=== PATIENT | female | born 1970 | race Caucasian/White ===

== ENCOUNTER 2017-04-16 19:51 | Emergency (ER) ==
[2017-04-16 20:00] VITALS: BP 123/86; TEMP 97.6; BMI 46.3
--- NOTE | 2017-04-16 20:02 | ED.PDOC ---
General ED Provider: Dr. JOSIAH PFEIFFER-ER Chief Complaint: Respiratory Complaint Stated Complaint: shes had a runny nose with nasal congestion and cough Time Seen by Physician: 20:00 Mode of Arrival: Walk-In Information Source: Patient Exam Limitations: No limitations Nursing and Triage Documentation Reviewed and Agree: Yes Respiratory Complaint Exam - Respiratory Complaint/Exam Onset/Duration: 3 days Symptoms Are: Still present Timing: Intermittent Initial Severity: Mild Current Severity: Mild Location: Nose, Chest Character: Reports: Productive cough Aggravating: Reports: URI Alleviating: Reports: None Associated Signs and Symptoms: Reports: Fever, URI, Nasal congestion, Sinus discomfort, Sore throat. Denies: Rapid breathing, Dyspnea, Chills, Chest pain, Pleuritic chest pain, Wheezing, Hemoptysis, Dizziness, Calf pain, Calf swelling , Edema, Hoarseness, Vomiting, Weight loss, Decreased oral intake, Increased thirst, Increased appetite, Increased urination History of Healthcare-Acquired Pneumonia: No Recent Stress Test: No Recent Echo/LV Function: No Current Antibiotic Use: No Current Asthma Medication Use: No Respiratory Distress: None Inadequate Respiratory Effort: No Dysphagia Present: No Stridor Present: No JVD Present: No Accessory Muscle Use: No Retractions: Not Present Diminished Breath Sounds: No Sinus Tenderness: None Grunting Respirations: No Kussmaul Respirations: No Differential Diagnoses: Bronchitis, Sinusitis, URI Review of Systems - Review Of Systems Constitutional: Reports: No symptoms Eyes: Reports: No symptoms Ears, Nose, Mouth, Throat: Reports: Nose discharge Respiratory: Reports: Cough Cardiac: Reports: No symptoms GI: Reports: No symptoms : Reports: No symptoms Musculoskeletal: Reports: No symptoms Skin: Reports: No symptoms Neurological: Reports: No symptoms Endocrine: Reports: No symptoms Hematologic/Lymphatic: Reports: No symptoms All Other Systems: Reviewed and Negative Past Medical History - Past Medical History Previously Healthy: Yes Endocrine: Reports: Unknown Cardiovascular: Reports: Unknown Respiratory: Reports: Unknown Hematological: Reports: Unknown Gastrointestinal: Reports: Unknown Genitourinary: Reports: Unknown Neuro/Psych: Reports: Unknown Musculoskeletal: Reports: Unknown Cancer: Reports: Unknown Last Menstrual Period: N/A - Surgical History General Surgical History: Reports: Unknown - Family History Family History: Reports: Unknown - Social History Smoking Status: Never smoker Hx Substance Use: No Alcohol Screening: None Lives: In Assisted Living - Immunizations Tetanus Shot up to Date: Yes Physical Exam - Physical Exam Appearance: Well-appearing, No pain distress, Well-nourished Eyes: RADHA, EOMI, Conjunctiva clear ENT: Rhinorrhea Neck: Supple Respiratory: Rhonchi Cardiovascular: RRR GI/: Soft, Nontender, No masses, Bowel sounds normal, No Organomegaly, Hepatomegaly Musculoskeletal: Normal strength, ROM intact, No edema, No calf tenderness Skin: Warm, Dry, Normal color Neurological: Sensation intact, Motor intact, Reflexes intact, Cranial nerves intact, Alert, Oriented Psychiatric: Affect appropriate, Mood appropriate Critical Care Note - Critical Care Note Total Time (mins): 0 Course - Course Vital Signs: Temp Pulse Resp BP Pulse Ox 04/16/17 19:53 97.6 F 90 18 123/86 94 L Departure - Departure Time of Disposition: 20:02 Disposition: HOME SELF-CARE Discharge Problem: Bronchitis Sinusitis Qualifiers: Sinusitis location: unspecified location Chronicity: acute Recurrence: non- recurrent Qualified Code(s): J01.90 - Acute sinusitis, unspecified Instructions: Sinusitis (ED) Condition: Good Pt referred to PMD for follow-up: No Additional Instructions: zpack, medrol dose pack, tessalon perles 200mg tid prn cough 30.. Allergies/Adverse Reactions: Allergies Penicillins Adverse Reaction (Verified 04/16/17 19:53) Disposition Discussed With: Patient, Other
== END 2017-04-16 20:28 | disposition home or self-care (01) ==
LOC: ED 19:51
DX: J40 Bronchitis, not specified as acute or chronic (principal); J01.90 Acute sinusitis, unspecified
CPT/HCPCS: 99283

== ENCOUNTER 2017-04-21 20:12 | Emergency (ER) ==
[2017-04-21 20:21] VITALS: BP 145/87; TEMP 97; BMI 47.9
[2017-04-21] MEDS ORDERED: TORADOL IM STA (21:20)
[2017-04-21] MEDS ORDERED: NORFLEX IM STA (21:20)
[2017-04-21] MEDS ORDERED: NORCO 5-325 PO STA (21:20)
--- NOTE | 2017-04-21 21:22 | ED.PDOC ---
General ED Provider: Dr. ALLEN MOURA Chief Complaint: Back Pain Stated Complaint: severe back pain on the right with radiation to the right leg. Denies any Trauma. Tylenol at home has not helped. Time Seen by Physician: 21:21 Mode of Arrival: Walk-In Information Source: Patient Nursing and Triage Documentation Reviewed and Agree: Yes Musculoskeletal Complaint Exam - Back Pain Complaint/Exam Mechanism of Injury: Reports: No known trauma Onset/Duration: 1 days Symptoms Are: Still present Timing: Constant Initial Severity: Moderate Current Severity: Severe Location: Reports: Discrete (right lower back radiating to the right leg ) Character: Reports: Aching, Throbbing, Spasmodic Aggravating: Reports: Movements, Bending, Walking Alleviating: Reports: Rest Associated Signs and Symptoms: Denies: Swelling, Redness, Bruising, Fever, Weakness, Numbness, Tingling, Abdominal pain, Flank pain, Bladder incontinence, Bowel incontinence, Weight loss, Pain with weight bearing Related History: Reports: Similar episode (off and on at times ) TAD Risk Factors: Reports: None AAA Risk Factors: Reports: None Cauda Equina Risk Factors: Reports: None Epidural Abcess Risk Factors: Reports: None Related Surgical History: Reports: None Focal Tenderness: Yes Paraspinal Muscle Tenderness: Yes Paraspinal Muscle Spasm: Yes Scoliosis: No Lordosis: No Kyphosis: No SLR Test: Right Positive, Left Negative Hip Motion Testing Pain: Right Negative, Left Negative Focal Weakness: Present: None Focal Sensory Loss: Present: None Gait: Present: Normal Back Picture: 1 - pain and tenderness 2 - radiation Differential Diagnoses: Strain, Sprain Review of Systems - Review Of Systems Constitutional: Reports: No symptoms Eyes: Reports: No symptoms Ears, Nose, Mouth, Throat: Reports: No symptoms Respiratory: Reports: No symptoms Cardiac: Reports: No symptoms GI: Reports: No symptoms : Reports: No symptoms Musculoskeletal: Reports: Back pain Skin: Reports: No symptoms Neurological: Reports: No symptoms Endocrine: Reports: No symptoms Hematologic/Lymphatic: Reports: No symptoms All Other Systems: Reviewed and Negative Past Medical History - Past Medical History Previously Healthy: Yes Endocrine: Reports: Unknown Cardiovascular: Reports: Unknown Respiratory: Reports: Unknown Hematological: Reports: Unknown Gastrointestinal: Reports: Unknown Genitourinary: Reports: Unknown Neuro/Psych: Reports: Unknown Musculoskeletal: Reports: Unknown Cancer: Reports: Unknown Last Menstrual Period: none - Surgical History General Surgical History: Reports: Unknown - Family History Family History: Reports: Unknown - Social History Smoking Status: Never smoker Hx Substance Use: No Alcohol Screening: None Physical Exam - Physical Exam Appearance: Ill-appearing Ill-appearing: Moderate Pain Distress: Moderate Eyes: RADHA, EOMI, Conjunctiva clear ENT: Ears normal, Nose normal, Oropharynx normal Respiratory: Airway patent, Breath sounds clear, Breath sounds equal, Respirations nonlabored Cardiovascular: RRR, Pulses normal, No rub, No murmur GI/: Soft, Nontender, No masses, Bowel sounds normal, No Organomegaly Musculoskeletal: Normal strength, ROM intact, No edema, No calf tenderness Skin: Warm, Dry, Normal color Neurological: Sensation intact, Motor intact, Reflexes intact, Cranial nerves intact, Alert, Oriented Psychiatric: Affect appropriate, Mood appropriate Re-Evaluation - Re-Evaluation Time of Re-Evaluation: 22:01 Status: Improved Pain Level: almost gone Critical Care Note - Critical Care Note Total Time (mins): 0 Course - Course Orders, Labs, Meds: Orders Category Date Time Status Hydrocodone Bit/Acetaminophen [[place]aves 5-325] MEDS 04/21/17 21:20 Discontinued 1 tab PO ONCE STA Ketorolac Tromethamine [Toradol] MEDS 04/21/17 21:20 Discontinued 60 mg IM ONCE STA Orphenadrine Citrate [Norflex] MEDS 04/21/17 21:20 Discontinued 60 mg IM ONCE STA Medications Discontinued Medications Generic Name Dose Route Start Last Admin Trade Name Freq PRN Reason Stop Dose Admin Acetaminophen/Hydrocodone Bitart 1 tab 04/21/17 21:20 04/21/17 21:29 W[place] 5-325 PO 04/21/17 21:21 1 tab ONCE STA Administration Ketorolac Tromethamine 60 mg 04/21/17 21:20 04/21/17 21:30 Toradol IM 04/21/17 21:21 60 mg ONCE STA Administration Orphenadrine Citrate 60 mg 04/21/17 21:20 04/21/17 21:29 Norflex IM 04/21/17 21:21 60 mg ONCE STA Administration Vital Signs: Temp Pulse Resp BP Pulse Ox 04/21/17 20:12 97.0 F L 97 H 18 145/87 H 95 Departure - Departure Time of Disposition: 22:01 Disposition: HOME SELF-CARE Discharge Problem: Backache Instructions: Low Back Strain (ED) Condition: Fair Pt referred to PMD for follow-up: Yes Additional Instructions: Take Medications as prescribed Follow up with PCP in 3 days Prescriptions: Hydrocodone/Acetaminophen [Waves 5-325 Tablet] 1 tab PO Q6HR PRN #14 tablet PRN Reason: PAIN Allergies/Adverse Reactions: Allergies Penicillins Adverse Reaction (Verified 04/21/17 20:21) Home Medications: Ambulatory Orders Benztropine Mesylate [Cogentin] 1 mg PO DAILY 04/16/17 Diphenhydramine HCl [Benadryl] 25 mg PO DAILY 04/16/17 Divalproex Sodium [Divalproex Sodium ER] 1,250 mg PO DAILY 04/16/17 [place] Carbonate [[place] Carbonate ER] 450 mg PO BID 04/16/17 Lurasidone HCl [Latuda] 20 mg PO DAILY 04/16/17 Pantoprazole Sodium [Protonix] 40 mg PO DAILY 04/16/17 Primidone [Mysoline] 50 mg PO DAILY 04/16/17 Propranolol HCl [Inderal] 20 mg PO BID 04/16/17 Acetaminophen [Tylenol Arthritis] 650 mg PO Q4H PRN 04/21/17 Azithromycin [Zithromax] 250 mg PO DIRECTED 04/21/17 Benzonatate [Tessalon Perles] 200 mg PO TID PRN 04/21/17 Hydrocodone/Acetaminophen [[place] 5-325 Tablet] 1 tab PO Q6HR PRN #14 tablet 10/01 Methylprednisolone [Medrol Dosepak] 4 mg PO DIRECTED 04/21/17 Disposition Discussed With: Patient
== END 2017-04-21 22:07 | disposition home or self-care (01) ==
LOC: ED 20:12
DX: M54.5 Low back pain (principal)
CPT/HCPCS: 96372; 99282

== ENCOUNTER 2017-05-21 10:33 | Outpatient (CLI) ==
--- NOTE | 2017-05-21 11:13 | DI ---
EXAM: Radiographs, lumbar spine HISTORY: Low back pain. COMPARISON: None available. TECHNIQUE: Five views. FINDINGS: Curvature and alignment are normal. Vertebral body heights are maintained. Disc heights are normal. Mild multilevel endplate osteophyte formation and facet arthropathy noted. No fracture or subluxation identified. Sacral arcuate lines are intact. Atherosclerotic calcifications present. IMPRESSION: Mild multilevel degenerative changes.
--- NOTE | 2017-05-21 11:14 | DI ---
EXAM: Pelvis AP view HISTORY: Pelvic and perineal pain FINDINGS: The visualized body of the sacrum and sacroiliac joints appear normal. The iliac wings a nd pubic bones reveal no deformity. Hip joints are normal. No fracture seen. IMPRESSION: Unremarkable study.
== END 2017-05-21 10:34 | disposition home or self-care (01) ==
LOC: RAD 10:33
PROVIDERS: ATTEND Emergency Medicine
DX: M54.5 Low back pain (principal); G89.29 Other chronic pain; R10.2 Pelvic and perineal pain

== ENCOUNTER 2017-06-15 11:42 | Outpatient (CLI) | END 2017-06-15 11:43 | disposition home or self-care (01) | LOC: CAR 11:42 | PROVIDERS: ATTEND Physician Assistant | DX: Z51.81 Encounter for therapeutic drug level monitoring (principal) | CPT/HCPCS: 93005; 93010 ==

== ENCOUNTER 2017-07-18 23:56 | Emergency (ER) ==
--- NOTE | 2017-07-19 00:19 | ED.PDOC ---
General ED Provider: Dr. ALLEN MOURA Chief Complaint: Chest Pain Stated Complaint: Started having sharp pain to mid chest when went to bed. States that the pain is constant. Time Seen by Physician: 00:17 Mode of Arrival: Walk-In Information Source: Patient Exam Limitations: No limitations Primary Care Provider: ELICEO HENSLEY Nursing and Triage Documentation Reviewed and Agree: Yes Reviewed sepsis parameters & appropriate labs ordered?: No System Inflammatory Response Syndrome: Not Applicable Sepsis Protocol: For patient's 13 years and over: Temp is 96.8 and below OR 101 and greater Pulse >90 BPM Resp >20/minute Acutely Altered Mental Status Are patient's symptoms suggestive of a new infection, such as: -Pneumonia -Skin, Soft Tissue -Endocarditis -UTI -Bone, Joint Infection -Implantable Device -Acute Abdominal Infection -Wound Infection -Meningitis -Blood Stream Catheter Infection -Unknown System Inflammatory Response Syndrome: Not Applicable Review of Systems - Review Of Systems Constitutional: Reports: No symptoms Eyes: Reports: No symptoms Ears, Nose, Mouth, Throat: Reports: No symptoms Respiratory: Reports: No symptoms Cardiac: Reports: Chest pain GI: Reports: No symptoms : Reports: No symptoms Musculoskeletal: Reports: No symptoms Skin: Reports: No symptoms Neurological: Reports: No symptoms Endocrine: Reports: No symptoms Hematologic/Lymphatic: Reports: No symptoms All Other Systems: Reviewed and Negative Past Medical History - Past Medical History Previously Healthy: Yes Endocrine: Reports: Unknown Cardiovascular: Reports: Unknown Respiratory: Reports: Unknown Hematological: Reports: Unknown Gastrointestinal: Reports: GERD Genitourinary: Reports: Unknown Neuro/Psych: Reports: Depression, Bipolar Disorder Musculoskeletal: Reports: Unknown Cancer: Reports: Unknown Last Menstrual Period: 5 days ago - Surgical History General Surgical History: Reports: Other (Cyst removed from right lower back ) - Family History Family History: Reports: Unknown - Social History Smoking Status: Current every day smoker, Heavy tobacco smoker Hx Substance Use: No Alcohol Screening: None - Immunizations Tetanus Shot up to Date: Yes (06/2017) Physical Exam - Physical Exam Appearance: Ill-appearing Pain Distress: Moderate Eyes: RADHA, EOMI, Conjunctiva clear Neck: Supple Respiratory: Airway patent, Breath sounds clear, Breath sounds equal, Respirations nonlabored GI/: Soft, Nontender, No masses, Bowel sounds normal, No Organomegaly Musculoskeletal: Normal strength, ROM intact, No edema, No calf tenderness Neurological: Alert Psychiatric: Anxious Interpretation - Radiology Interpretation Radiology Interpretation By: ED Physician Radiology Results: Negative Exam Interpreted: Portable CXR - EKG Interpretation Time of EKG #1: 00:25 Rate: Normal Rhythm: Sinus Ectopy: None [place]: NL ST Segment: Other Interpretation: non specific T wave Abnormality Critical Care Note - Critical Care Note Total Time (mins): 0 Course - Course Hematology/Chemistry: 07/19/17 00:40 07/19/17 00:40 Orders, Labs, Meds: Lab Review 07/19/17 03 00:40 00:40 WBC 14.00 H RBC 4.00 L Hgb 12.9 Hct 39.7 MCV 99.3 H MCH 32.3 H MCHC 32.5 RDW Coeff of Yehuda 13.9 Plt Count 344 Immature Gran % (Auto) 1.6 Neut % (Auto) 40.4 Lymph % (Auto) 43.6 Pepin % (Auto) 9.0 Eos % (Auto) 4.5 Baso % (Auto) 0.9 Immature Gran # (Auto) 0.2 Neut # (Auto) 5.7 Lymph # (Auto) 6.1 H Pepin # (Auto) 1.3 Eos # (Auto) 0.6 Baso # (Auto) 0.1 Sodium 134 L Potassium 4.5 Chloride 101 Carbon Dioxide 20 L Anion Gap 17.5 BUN 10 Creatinine 0.75 Estimated GFR (MDRD) 83.00 BUN/Creatinine Ratio 13.33 Glucose 94 Calcium 9.3 Total Bilirubin 0.3 AST 16 ALT 13 Alkaline Phosphatase 62 Total Creatine Kinase 116 CK-MB (CK-2) 3.0 CK-MB (CK-2) % 2.38401 Troponin I < 0.0100 Total Protein 7.3 Albumin 3.3 L Globulin 4.0 Albumin/Globulin Ratio 0.83 Orders Category Date Time Status EKG-(ED ONLY) Stat CARDIO 07/19/17 00:15 Completed ED GAME TECHNICIAN APPLIED .ONCE EMERGENCY 07/19/17 00:15 Active CBC W/ AUTO DIFF Stat LAB 07/19/17 00:40 Completed COMPREHENSIVE METABOLIC PANEL Stat LAB 07/19/17 00:40 Completed CREATINE KINASE Stat LAB 07/19/17 00:40 Completed TROPONIN I Stat LAB 07/19/17 00:40 Completed Mag-Al Plus//Lidocaine [Gi Cocktail] MEDS 07/19/17 00:35 Discontinued 30 ml PO ONCE STA CHEST, 1V AP ONLY Stat RADS 07/19/17 00:13 Completed Medications Discontinued Medications Generic Name Dose Route Start Last Admin Trade Name Dashawn PRN Reason Stop Dose Admin Al Hydroxide/Mg Hydroxide 30 ml 07/19/17 00:35 07/19/17 00:41 Gi Cocktail PO 07/19/17 00:36 30 ml ONCE STA Administration Vital Signs: Temp Pulse Resp BP Pulse Ox 07/18/17 23:59 97 F L 77 18 106/76 98 MERLE Risk Score Age >/= 65: No >/= 3 CAD Risk Factors: No Known CAD (Stenosis >/= 50%): No ASA Use in Past 7 Days: No Severe Angina (>/= 2 episodes in 24 hours): No EKG ST Changes >/= 0.5mm: No Postive Cardiac Marker: No MERLE Total Score: 0 MERLE Risk Score: Risk Score Odds of by 30D 0 0.1 (0.1-0.2) 1 0.3 (0.2-0.3) 2 0.4 (0.3-0.5) 3 0.7 (0.6-0.9) 4 1.2 (1.0-1.5) 5 2.2 (1.9-2.6) 6 3.0 (2.5-3.6) 7 4.8 (3.8-6.1) Departure - Departure Time of Disposition: 01:24 Disposition: HOME SELF-CARE Discharge Problem: Chest pain, Non-cardiac chest pain GERD (gastroesophageal reflux disease) Qualifiers: Esophagitis presence: without esophagitis Qualified Code(s): K21.9 - Gastro- esophageal reflux disease without esophagitis Instructions: Gastroesophageal Reflux Disease (ED), Chest Wall Pain (ED) Condition: Stable Pt referred to PMD for follow-up: Yes IPMP verified?: No Additional Instructions: Continue home medications for GERD Follow up with PCP in 3 days Allergies/Adverse Reactions: Allergies Penicillins Adverse Reaction (Verified 04/21/17 20:21) Home Medications: Ambulatory Orders Benztropine Mesylate [Cogentin] 1 mg PO DAILY 04/16/17 Diphenhydramine HCl [Benadryl] 25 mg PO BEDTIME 04/16/17 Divalproex Sodium [Divalproex Sodium ER] 250 mg PO BEDTIME 04/16/17 [place] Carbonate [[place] Carbonate ER] 450 mg PO BID 04/16/17 Pantoprazole Sodium [Protonix] 40 mg PO DAILY 04/16/17 Primidone [Mysoline] 50 mg PO DAILY 04/16/17 Propranolol HCl [Inderal] 20 mg PO BID 04/16/17 Acetaminophen [Tylenol Arthritis] 650 mg PO TID PRN 04/21/17 Benzonatate [Tessalon Perles] 200 mg PO TID PRN 04/21/17 Lurasidone HCl [Latuda] 20 mg PO BID 05/01/17 Divalproex Sodium [Depakote ER] 1,000 mg PO BEDTIME 07/19/17 Hydrocodone Bit/Acetaminophen [[place] 5-325] 5 - 325 mg PO Q6H PRN 07/19/17 Ibuprofen [Motrin] 400 mg PO Q12H PRN 07/19/17 Disposition Discussed With: Patient
[2017-07-19 00:35] VITALS: BP 106/76; TEMP 97; BMI 47.5
[2017-07-19] MEDS ORDERED: GI COCKTAIL PO STA (00:35)
--- NOTE | 2017-07-19 06:50 | DI ---
EXAM: Chest, one-view HISTORY: Chest Pain FINDINGS: Cardiac and mediastinal contours are normal. Pulmonary vasculature is normal. Lungs are clear. Bony thorax is unremarkable. IMPRESSION: Within normal limits
== END 2017-07-19 01:40 | disposition home or self-care (01) ==
LOC: ED 23:56
DX: R07.9 Chest pain, unspecified (principal); K21.9 Gastro-esophageal reflux disease without esophagitis; F17.210 Nicotine dependence, cigarettes, uncomplicated
CPT/HCPCS: 36415; 80053; 82550; 82553; 84484; 85025; 93005; 93010; 99283

== ENCOUNTER 2017-07-27 16:30 | Outpatient (CLI) | END 2017-07-27 16:31 | disposition home or self-care (01) | LOC: CAR 16:30 | PROVIDERS: ATTEND Physician Assistant | DX: G47.30 Sleep apnea, unspecified (principal) | CPT/HCPCS: 95811 ==

== ENCOUNTER 2017-07-31 17:45 | Emergency (ER) ==
[2017-07-31 17:53] VITALS: BP 130/82; TEMP 97.5; BMI 47.9
[2017-07-31] MEDS ORDERED: PROTONIX IV IVP STA (18:38)
[2017-07-31] MEDS ORDERED: PEPCID IVP STA (18:38)
[2017-07-31] MEDS ORDERED: GI COCKTAIL PO STA (18:38)
--- NOTE | 2017-07-31 20:49 | CT ---
EXAM: CTA thorax HISTORY: Chest pain COMPARISON: None. FINDINGS: Contiguous axial images obtained through the thorax following uneventful administration in travenous contrast utilizing 3-mm collimation. Sagittal and coronal reconstructions were imaged and reviewed. Source images were utilized to create rotating 3-D MIP images.. The thoracic inlet is unr emarkable. There are subcentimeter prevascular pretracheal subcarinal lymph nodes. The heart is nor mal in size without pericardial effusion. There is no evidence of pulmonary embolus. There is mild dependent atelectasis at the lung bases. The visualized upper abdominal structures are unremarkable. . Bone windows reveals no evidence of lytic or blastic lesions. IMPRESSION: No evidence of pulmonary embolus. Minimal bibasilar atelectasis.
--- NOTE | 2017-07-31 21:10 | ED.PDOC ---
General ED Provider: Dr. JOSIAH PFEIFFER-ER Chief Complaint: Chest Pain Stated Complaint: my chest has been hurting for 5 years Time Seen by Physician: 17:50 Mode of Arrival: Walk-In Information Source: Patient Exam Limitations: No limitations Primary Care Provider: BLUE SMITH Nursing and Triage Documentation Reviewed and Agree: Yes Reviewed sepsis parameters & appropriate labs ordered?: Yes System Inflammatory Response Syndrome: Not Applicable Sepsis Protocol: For patient's 13 years and over: Temp is 96.8 and below OR 101 and greater Pulse >90 BPM Resp >20/minute Acutely Altered Mental Status Are patient's symptoms suggestive of a new infection, such as: -Pneumonia -Skin, Soft Tissue -Endocarditis -UTI -Bone, Joint Infection -Implantable Device -Acute Abdominal Infection -Wound Infection -Meningitis -Blood Stream Catheter Infection -Unknown Cardiovascular Complaint Exam - Chest Pain Complaint/Exam Onset: Gradual Duration: 5 years Symptoms Are: Still present Timing: Constant Initial Severity: Mild Current Severity: Moderate Location: Reports: Diffuse Pain Radiates: Reports: None Character: Reports: Dull, Aching Alleviating: Reports: None Associated Signs and Symptoms: Denies: Diaphoresis, Nausea, Vomiting, Fever, Palpitations, Cough, Hemoptysis, Back pain, Abdominal pain, Dizziness, Short of air, Calf pain, Calf swelling Prior Care for this Complaint: No Recent Stress Test: No Recent Echo/LV Function: No JVD Present: No Subcutaneous Emphysema Present: No Diminshed Breath Sounds: No Reproducible Chest Wall Pain: No Bilateral Pulses Present: Yes Unequal Pulses Noted: No Review of Systems - Review Of Systems Constitutional: Reports: No symptoms Eyes: Reports: No symptoms Ears, Nose, Mouth, Throat: Reports: No symptoms Respiratory: Reports: No symptoms Cardiac: Reports: Chest pain GI: Reports: Abdominal pain, Nausea : Reports: No symptoms Musculoskeletal: Reports: No symptoms Skin: Reports: No symptoms Neurological: Reports: No symptoms Endocrine: Reports: No symptoms Hematologic/Lymphatic: Reports: No symptoms All Other Systems: Reviewed and Negative Past Medical History - Past Medical History Previously Healthy: Yes Endocrine: Reports: Unknown Cardiovascular: Reports: Unknown Respiratory: Reports: Unknown Hematological: Reports: Unknown Gastrointestinal: Reports: GERD Genitourinary: Reports: Unknown Neuro/Psych: Reports: Depression, Bipolar Disorder Musculoskeletal: Reports: Unknown Cancer: Reports: Unknown Last Menstrual Period: Finished a few days ago - Surgical History General Surgical History: Reports: Other (Cyst removed from right lower back ) - Family History Family History: Reports: Unknown - Social History Smoking Status: Current every day smoker, Heavy tobacco smoker Hx Substance Use: No Alcohol Screening: None Lives: With family Physical Exam - Physical Exam Appearance: Well-appearing Pain Distress: Mild Eyes: RADHA, EOMI, Conjunctiva clear ENT: Ears normal, Nose normal, Oropharynx normal Neck: Supple Respiratory: Airway patent, Breath sounds clear, Breath sounds equal, Respirations nonlabored Cardiovascular: RRR, Pulses normal, No rub, No murmur GI/: Soft, Nontender, No masses, Bowel sounds normal, No Organomegaly Musculoskeletal: Normal strength, ROM intact, No edema, No calf tenderness Skin: Warm, Dry, Normal color Neurological: Sensation intact, Motor intact, Reflexes intact, Cranial nerves intact, Alert, Oriented Psychiatric: Affect appropriate, Mood appropriate Interpretation - Radiology Interpretation Radiology Interpretation By: Radiologist Radiology Results: Negative Exam Interpreted: CT Scan - EKG Interpretation Time of EKG #1: 21:30 Rate: Normal Rhythm: Sinus Ectopy: None Wilsey: NL ST Segment: Normal Interpretation: nsr Re-Evaluation - Re-Evaluation Time of Re-Evaluation: 21:31 Status: Improved (no pain"i want to go home") Vital Signs Stable: Yes Pain Level: 0 Appearance: NAD Lungs: Clear Skin: Warm and Dry Neuro: Alert and Oriented X3 CV: RRR Critical Care Note - Critical Care Note Total Time (mins): 0 Course - Course Hematology/Chemistry: 07/31/17 18:47 07/31/17 18:47 Orders, Labs, Meds: Lab Review 07/31/17 07/31/17 07/31/17 18:47 18:47 18:47 WBC 14.56 H RBC 3.69 L Hgb 12.1 Hct 37.8 MCV 102.4 H MCH 32.8 H MCHC 32.0 RDW Coeff of Yehuda 14.4 Plt Count 384 Immature Gran % (Auto) 2.1 Neut % (Auto) 53.1 Lymph % (Auto) 33.8 [place] % (Auto) 7.1 Eos % (Auto) 3.4 Baso % (Auto) 0.5 Immature Gran # (Auto) 0.3 Neut # (Auto) 7.7 H Lymph # (Auto) 4.9 H [place] # (Auto) 1.0 Eos # (Auto) 0.5 Baso # (Auto) 0.1 Sodium 132 L Potassium 3.9 Chloride 100 Carbon Dioxide 23 Anion Gap 12.9 BUN 9 Creatinine 0.83 Estimated GFR (MDRD) 74.00 BUN/Creatinine Ratio 10.84 Glucose 204 H Calcium 9.4 Total Bilirubin 0.3 AST 16 ALT 12 Alkaline Phosphatase 59 Total Creatine Kinase 141 CK-MB (CK-2) 2.0 CK-MB (CK-2) % 1.71379 Troponin I < 0.0100 Total Protein 7.4 Albumin 3.5 Globulin 3.9 Albumin/Globulin Ratio 0.90 Amylase 36 Lipase 35 Serum , Qual Negative Orders Category Date Time Status EKG-(ED ONLY) Stat CARDIO 07/31/17 18:36 Ordered EKG-(ED ONLY) Stat CARDIO 07/31/17 21:21 Ordered NPO REMINDER: IMAGING ONCE CARE 07/31/17 18:37 Completed Assistant Plant Controller [ED PEDIATRIC GENETIC COUNSELOR APPLIED] .ONCE EMERGENCY 07/31/17 19:05 Active IV [ED IV/MEDIPORT/POWERPORT] .ONCE EMERGENCY 07/31/17 18:37 Active AMYLASE Stat LAB 07/31/17 18:47 Completed CBC W/ AUTO DIFF Stat LAB 07/31/17 18:47 Completed COMPREHENSIVE METABOLIC PANEL Stat LAB 07/31/17 18:47 Completed CREATINE KINASE Stat LAB 07/31/17 18:47 Completed LIPASE Stat LAB 07/31/17 18:47 Completed SERUM Stat LAB 07/31/17 18:47 Completed TROPONIN I Stat LAB 07/31/17 18:47 Completed URINALYSIS C & S IF INDICATED Stat LAB 07/31/17 18:36 Uncollected 0.9 % Sodium Chloride [Saline Flush] MEDS 07/31/17 18:37 Ordered 1 syr IVF PRN PRN Famotidine Inj [Pepcid] MEDS 07/31/17 18:38 Discontinued 20 mg IVP ONCE STA Mag-Al Plus//Lidocaine [Gi Cocktail] MEDS 07/31/17 18:38 Discontinued 30 ml PO ONCE STA Pantoprazole Sodium [Protonix IV] MEDS 07/31/17 18:38 Discontinued [address]CE [address] CHEST PE PROTOCOL Stat RADS 07/31/17 18:37 Completed Medications Generic Name Dose Route Start Last Admin Trade Name Freq PRN Reason Stop Dose Admin Sodium Chloride 1 syr 07/31/17 18:37 07/31/17 19:26 Saline Flush IVF 1 syr PRN PRN Administration To flush IV Discontinued Medications Generic Name Dose Route Start Last Admin Trade Name Dashawn PRN Reason Stop Dose Admin Al Hydroxide/Mg Hydroxide 30 ml 07/31/17 18:38 07/31/17 19:22 Gi Cocktail PO 07/31/17 18:39 30 ml ONCE STA Administration Famotidine 20 mg 07/31/17 18:38 07/31/17 19:18 Pepcid IVP 07/31/17 18:39 20 mg ONCE STA Administration Pantoprazole Sodium 40 mg 07/31/17 18:38 07/31/17 19:21 Protonix Iv IVP 07/31/17 18:39 40 mg ONCE STA Administration Vital Signs: Temp Pulse Resp BP Pulse Ox 07/31/17 17:46 97.5 F L 91 H 20 130/82 97 MERLE Risk Score MERLE Risk Score: Risk Score Odds of by 30D 0 0.1 (0.1-0.2) 1 0.3 (0.2-0.3) 2 0.4 (0.3-0.5) 3 0.7 (0.6-0.9) 4 1.2 (1.0-1.5) 5 2.2 (1.9-2.6) 6 3.0 (2.5-3.6) 7 4.8 (3.8-6.1) Departure - Departure Time of Disposition: 21:31 Disposition: HOME SELF-CARE Discharge Problem: Chest pain Instructions: Chest Pain (ED) Condition: Good Pt referred to PMD for follow-up: Yes IPMP verified?: No Additional Instructions: increase protonix to bid--f/u with pcp Allergies/Adverse Reactions: Allergies Penicillins Adverse Reaction (Verified 04/21/17 20:21) Home Medications: Ambulatory Orders Benztropine Mesylate [Cogentin] 1 mg PO DAILY 04/16/17 Diphenhydramine HCl [Benadryl] 25 mg PO BEDTIME 04/16/17 Divalproex Sodium [Divalproex Sodium ER] 250 mg PO BEDTIME 04/16/17 [place] Carbonate [[place] Carbonate ER] 450 mg PO BID 04/16/17 Pantoprazole Sodium [Protonix] 40 mg PO DAILY 04/16/17 Primidone [Mysoline] 50 mg PO DAILY 04/16/17 Propranolol HCl [Inderal] 20 mg PO BID 04/16/17 Acetaminophen [Tylenol Arthritis] 650 mg PO TID PRN 04/21/17 Benzonatate [Tessalon Perles] 200 mg PO TID PRN 04/21/17 Lurasidone HCl [Latuda] 20 mg PO BID 05/01/17 Divalproex Sodium [Depakote ER] 1,000 mg PO BEDTIME 07/19/17 Hydrocodone Bit/Acetaminophen [[place] 5-325] 5 - 325 mg PO Q6H PRN 07/19/17 Ibuprofen [Motrin] 400 mg PO Q12H PRN 07/19/17 Disposition Discussed With: Patient
== END 2017-07-31 21:53 | disposition home or self-care (01) ==
LOC: ED 17:45
DX: R07.9 Chest pain, unspecified (principal); R10.9 Unspecified abdominal pain; F17.210 Nicotine dependence, cigarettes, uncomplicated; Z79.899 Other long term (current) drug therapy
CPT/HCPCS: 36415; 80053; 82150; 82550; 82553; 83690; 84484; 84703; 85025; 93005; 93010; 96374; 96375; 99283

== ENCOUNTER 2017-08-03 16:02 | Emergency (ER) ==
[2017-08-03 16:03] VITALS: BMI 47.9
[2017-08-03 16:10] VITALS: BP 130/94; TEMP 97.3
--- NOTE | 2017-08-03 17:30 | ED.PDOC ---
Medical Screening Exam - General Information Time Seen by Physician*: 17:20 (old Anjel Pt) Mode of Arrival: Walk-In Information Source: Patient - History Chief Complaint: Psychiatric Complaint Stated Complaint: I got very upset regarding family and i made a mistake of scratching myself and telling someone i wwanted to hang myself Symptoms Are: Resolved Timing: Intermittent Severity: Mild - Review Of Systems Constitutional: None CV: Reports: None Respiratory: Reports: None GI: Reports: None : Reports: None Musculoskeletal: Reports: None Neuro: Reports: None - Past Medical History Past Medical History: Previously healthy - Examination Findings Visit Related to : No - Medical Decision Making Emergency Medical Condition: Yes Physical Exam - Physical Exam Appearance: Obese Ill-appearing: None Pain Distress: None Eyes: RADHA, EOMI, Conjunctiva clear ENT: Ears normal, Nose normal, Oropharynx normal Neck: Supple Respiratory: Airway patent, Breath sounds clear, Breath sounds equal, Respirations nonlabored Cardiovascular: RRR, Pulses normal, No rub, No murmur GI/: Soft, Nontender, No masses, Bowel sounds normal, No Organomegaly Musculoskeletal: Normal strength, ROM intact, No edema, No calf tenderness Skin: Warm, Dry, Normal color Neurological: Sensation intact, Motor intact, Reflexes intact, Cranial nerves intact, Alert, Oriented Psychiatric: Anxious Re-Evaluation - Re-Evaluation Time of Re-Evaluation: 19:10 Status: Improved Vital Signs Stable: Yes Appearance: NAD Lungs: Clear Skin: Warm and Dry Neuro: Alert and Oriented X3 (affect and attitude much better, stable to go back to [facility]) CV: RRR Critical Care Note - Critical Care Note Total Time (mins): 0 Course - Course Orders, Labs, Meds: Lab Review 08/03/17 17:43 Valproic Acid 65.67 Orders Category Date Time Status LITHIUM Stat LAB 08/03/17 17:43 Received VALPORIC ACID (DEPAKENE) Stat LAB 08/03/17 17:43 Completed Haloperidol Lactate Inj [Haldol] MEDS 08/03/17 18:10 Discontinued 5 mg IM ONCE STA Lorazepam Inj [Ativan] MEDS 08/03/17 18:09 Discontinued 2 mg IM ONCE STA Medications Discontinued Medications Generic Name Dose Route Start Last Admin Trade Name Freq PRN Reason Stop Dose Admin Haloperidol Lactate 5 mg 08/03/17 18:10 08/03/17 18:21 Haldol IM 08/03/17 18:11 5 mg ONCE STA Administration Lorazepam 2 mg 08/03/17 18:09 08/03/17 18:20 Ativan IM 08/03/17 18:10 2 mg ONCE STA Administration Vital Signs: Temp Pulse Resp BP Pulse Ox 08/03/17 16:04 97.3 F L 80 20 130/94 H 94 L Departure - Departure Time of Disposition: 19:25 Disposition: HOME SELF-CARE Discharge Problem: Suicidal behavior with attempted self-injury, Chest pain Condition: Good Pt referred to PMD for follow-up: Yes IPMP verified?: No Additional Instructions: pt stable psychiatrically, she stated several time she was NOT trying to commit suicide just attention seeking, she apologized for saying things she didn't mean , she states she was upset regarding family issues. Allergies/Adverse Reactions: Allergies Penicillins Adverse Reaction (Verified 08/03/17 17:19) Home Medications: Ambulatory Orders Benztropine Mesylate [Cogentin] 1 mg PO DAILY 04/16/17 Diphenhydramine HCl [Benadryl] 25 mg PO BEDTIME 04/16/17 Divalproex Sodium [Divalproex Sodium ER] 250 mg PO BEDTIME 04/16/17 [place] Carbonate [[place] Carbonate ER] 450 mg PO BID 04/16/17 Pantoprazole Sodium [Protonix] 40 mg PO DAILY 04/16/17 Primidone [Mysoline] 50 mg PO DAILY 04/16/17 Propranolol HCl [Inderal] 20 mg PO BID 04/16/17 Acetaminophen [Tylenol Arthritis] 650 mg PO TID PRN 04/21/17 Benzonatate [Tessalon Perles] 200 mg PO TID PRN 04/21/17 Lurasidone HCl [Latuda] 20 mg PO BID 05/01/17 Divalproex Sodium [Depakote ER] 1,000 mg PO BEDTIME 07/19/17 Hydrocodone Bit/Acetaminophen [[place] 5-325] 5 - 325 mg PO Q6H PRN 07/19/17 Ibuprofen [Motrin] 400 mg PO Q12H PRN 07/19/17 Disposition Discussed With: Patient (was give a chemical of Ativan 2 and Haldol 5mg IM, pt became stable afterwards)
[2017-08-03] MEDS ORDERED: ATIVAN IM STA (18:09)
[2017-08-03] MEDS ORDERED: HALDOL IM STA (18:10)
== END 2017-08-03 19:17 | disposition home or self-care (01) ==
LOC: ED 16:02
DX: R45.851 Suicidal ideations (principal); T14.8XXA Other injury of unspecified body region, initial encounter; R07.9 Chest pain, unspecified; Y33.XXXA Other specified events, undetermined intent, initial encounter
CPT/HCPCS: 36415; 80164; 80178; 96372; 99283

== ENCOUNTER 2017-08-12 14:43 | Emergency (ER) ==
[2017-08-12 14:57] VITALS: BP 148/89; TEMP 97.9; BMI 47.1
--- NOTE | 2017-08-12 17:08 | ED.PDOC ---
General ED Provider: Dr. MARY ALICE OKEEFE Chief Complaint: Psychiatric Complaint Stated Complaint: medical clearance Time Seen by Physician: 15:00 Mode of Arrival: Walk-In Information Source: Patient Primary Care Provider: BLUE SMITH Nursing and Triage Documentation Reviewed and Agree: Yes Reviewed sepsis parameters & appropriate labs ordered?: Yes System Inflammatory Response Syndrome: Not Applicable Sepsis Protocol: For patient's 13 years and over: Temp is 96.8 and below OR 101 and greater Pulse >90 BPM Resp >20/minute Acutely Altered Mental Status Are patient's symptoms suggestive of a new infection, such as: -Pneumonia -Skin, Soft Tissue -Endocarditis -UTI -Bone, Joint Infection -Implantable Device -Acute Abdominal Infection -Wound Infection -Meningitis -Blood Stream Catheter Infection -Unknown System Inflammatory Response Syndrome: Not Applicable Review of Systems - Review Of Systems Constitutional: Reports: No symptoms Eyes: Reports: No symptoms Ears, Nose, Mouth, Throat: Reports: No symptoms Respiratory: Reports: No symptoms Cardiac: Reports: No symptoms GI: Reports: No symptoms : Reports: No symptoms Musculoskeletal: Reports: No symptoms Skin: Reports: No symptoms Neurological: Reports: Emotional problems Endocrine: Reports: No symptoms Hematologic/Lymphatic: Reports: No symptoms All Other Systems: Reviewed and Negative Past Medical History - Past Medical History Previously Healthy: Yes Endocrine: Reports: Unknown Cardiovascular: Reports: Unknown Respiratory: Reports: Unknown Hematological: Reports: Unknown Gastrointestinal: Reports: GERD Genitourinary: Reports: Unknown Neuro/Psych: Reports: Depression, Bipolar Disorder Musculoskeletal: Reports: Unknown Cancer: Reports: Unknown Last Menstrual Period: unknown - Surgical History General Surgical History: Reports: Other (Cyst removed from right lower back ) - Family History Family History: Reports: Unknown - Social History Smoking Status: Current every day smoker, Heavy tobacco smoker Hx Substance Use: No Alcohol Screening: None Physical Exam - Physical Exam Appearance: Well-appearing, No pain distress, Well-nourished Eyes: RADHA, EOMI, Conjunctiva clear ENT: Ears normal, Nose normal, Oropharynx normal Respiratory: Airway patent, Breath sounds clear, Breath sounds equal, Respirations nonlabored Cardiovascular: RRR, Pulses normal, No rub, No murmur GI/: Soft, Nontender, No masses, Bowel sounds normal, No Organomegaly Musculoskeletal: Normal strength, ROM intact, No edema, No calf tenderness Skin: Warm, Dry, Normal color Neurological: Sensation intact, Motor intact, Reflexes intact, Cranial nerves intact, Alert, Oriented Psychiatric: Affect appropriate, Mood appropriate Critical Care Note - Critical Care Note Total Time (mins): 0 Course - Course Hematology/Chemistry: 08/12/17 15:26 08/12/17 15:26 Orders, Labs, Meds: Lab Review 08/12/17 08/12/17 08/12/17 15:05 15:05 15:26 WBC 11.57 H RBC 3.68 L Hgb 12.1 Hct 37.5 MCV 101.9 H MCH 32.9 H MCHC 32.3 RDW Coeff of Yehuda 14.0 Plt Count 349 Immature Gran % (Auto) 1.0 Neut % (Auto) 49.9 Lymph % (Auto) 36.7 [place] % (Auto) 8.6 Eos % (Auto) 3.2 Baso % (Auto) 0.6 Immature Gran # (Auto) 0.1 Neut # (Auto) 5.8 Lymph # (Auto) 4.3 H [place] # (Auto) 1.0 Eos # (Auto) 0.4 Baso # (Auto) 0.1 Sodium Potassium Chloride Carbon Dioxide Anion Gap BUN Creatinine Estimated GFR (MDRD) BUN/Creatinine Ratio Glucose Calcium Total Bilirubin AST ALT Alkaline Phosphatase Total Protein Albumin Globulin Albumin/Globulin Ratio Urine Color Yellow Urine Clarity Clear Urine pH 7.0 Ur Specific [place] 1.015 Urine Protein Negative Urine Glucose (UA) Negative Urine Ketones Negative Urine Blood Trace-lysed Urine Nitrite Negative Urine Bilirubin Negative Urine Urobilinogen 0.2 Ur Leukocyte Esterase Negative Urine Microscopic RBC 0-2 Ur Squamous Epith Cells 0-2 Salicylate Level mg/dL Urine Opiates Screen Negative Ur Oxycodone Screen Negative Urine Methadone Screen Negative Ur Propoxyphene Screen Negative Acetaminophen Ur Barbiturates Screen Negative U Tricyclic Antidepress Negative Ur Phencyclidine Scrn Negative Ur Amphetamine Screen Negative U Methamphetamines Scrn Negative U Benzodiazepines Scrn Negative Urine Cocaine Screen Negative U Cannabinoids Screen Negative Plasma/Serum Alcohol 08/12/17 15:26 WBC RBC Hgb Hct MCV MCH MCHC RDW Coeff of Yehuda Plt Count Immature Gran % (Auto) Neut % (Auto) Lymph % (Auto) [place] % (Auto) Eos % (Auto) Baso % (Auto) Immature Gran # (Auto) Neut # (Auto) Lymph # (Auto) [place] # (Auto) Eos # (Auto) Baso # (Auto) Sodium 134 L Potassium 4.4 Chloride 104 Carbon Dioxide 21 Anion Gap 13.4 BUN 9 Creatinine 0.75 Estimated GFR (MDRD) 83.00 BUN/Creatinine Ratio 12.00 Glucose 199 H Calcium 9.6 Total Bilirubin 0.3 AST 11 L ALT 8 L Alkaline Phosphatase 56 Total Protein 6.6 Albumin 3.1 L Globulin 3.5 Albumin/Globulin Ratio 0.89 Urine Color Urine Clarity Urine pH Ur Specific [place] Urine Protein Urine Glucose (UA) Urine Ketones Urine Blood Urine Nitrite Urine Bilirubin Urine Urobilinogen Ur Leukocyte Esterase Urine Microscopic RBC Ur Squamous Epith Cells Salicylate Level mg/dL < 5.0 Urine Opiates Screen Ur Oxycodone Screen Urine Methadone Screen Ur Propoxyphene Screen Acetaminophen < 3 L Ur Barbiturates Screen U Tricyclic Antidepress Ur Phencyclidine Scrn Ur Amphetamine Screen U Methamphetamines Scrn U Benzodiazepines Scrn Urine Cocaine Screen U Cannabinoids Screen Plasma/Serum Alcohol < 10.0 Orders Category Date Time Status EKG-(ED ONLY) Stat CARDIO 08/12/17 15:10 Completed ED FIRE CONTROLMAN APPLIED ONCE EMERGENCY 08/12/17 15:10 Active ACETAMINOPHEN Stat LAB 08/12/17 15:26 Completed BLOOD ALCOHOL Stat LAB 08/12/17 15:26 Completed CBC W/ AUTO DIFF Stat LAB 08/12/17 15:26 Completed COMPREHENSIVE METABOLIC PANEL Stat LAB 08/12/17 15:26 Completed DRUG SCREEN, URINE, RAPID Stat LAB 08/12/17 15:05 Completed SALICYLATE Stat LAB 08/12/17 15:26 Completed URINALYSIS C & S IF INDICATED Stat LAB 08/12/17 15:05 Completed Vital Signs: Temp Pulse Resp BP Pulse Ox 08/12/17 14:44 97.9 F 99 H 20 148/89 H 95 Departure - Departure Time of Disposition: 17:13 Disposition: HOME SELF-CARE Discharge Problem: Normal exam Instructions: Depression (ED) Condition: Good Pt referred to PMD for follow-up: Yes IPMP verified?: No Allergies/Adverse Reactions: Allergies Penicillins Adverse Reaction (Verified 08/12/17 14:54) Home Medications: Ambulatory Orders Benztropine Mesylate [Cogentin] 1 mg PO DAILY 04/16/17 Diphenhydramine HCl [Benadryl] 25 mg PO BEDTIME 04/16/17 Divalproex Sodium [Divalproex Sodium ER] 250 mg PO BEDTIME 04/16/17 [place] Carbonate [[place] Carbonate ER] 450 mg PO BID 04/16/17 Pantoprazole Sodium [Protonix] 40 mg PO DAILY 04/16/17 Primidone [Mysoline] 50 mg PO DAILY 04/16/17 Propranolol HCl [Inderal] 20 mg PO BID 04/16/17 Acetaminophen [Tylenol Arthritis] 650 mg PO TID PRN 04/21/17 Benzonatate [Tessalon Perles] 200 mg PO TID PRN 04/21/17 Lurasidone HCl [Latuda] 20 mg PO BID 05/01/17 Divalproex Sodium [Depakote ER] 1,000 mg PO BEDTIME 07/19/17 Hydrocodone Bit/Acetaminophen [[place] 5-325] 5 - 325 mg PO Q6H PRN 07/19/17 Ibuprofen [Motrin] 400 mg PO Q12H PRN 07/19/17
== END 2017-08-12 17:35 | disposition home or self-care (01) ==
LOC: ED 14:43
DX: Z02.89 Encounter for other administrative examinations (principal); F17.210 Nicotine dependence, cigarettes, uncomplicated
CPT/HCPCS: 36415; 80053; 80306; 80307; 81001; 85025; 93005; 93010; 99283

== ENCOUNTER 2017-08-13 13:57 | Emergency (ER) ==
[2017-08-13 14:06] VITALS: BP 135/84; TEMP 96.4; BMI 53.9
--- NOTE | 2017-08-17 13:15 | ED.PDOC ---
General ED Provider: Dr. MARY ALICE OKEEFE Chief Complaint: Psychiatric Complaint Stated Complaint: MEDICAL CLEARANCE FOR PSYCH Time Seen by Physician: 14:00 Mode of Arrival: Walk-In Information Source: Patient, Assisted Living Exam Limitations: No limitations Primary Care Provider: BLUE SMITH Referred to ED by: Other (SEEN 1 DAY AGO ) Nursing and Triage Documentation Reviewed and Agree: Yes (ARRIVES IN NO DISTRESS AWAITING MEDICAL CLEARANCE FOR PSYCH) Reviewed sepsis parameters & appropriate labs ordered?: Yes System Inflammatory Response Syndrome: Not Applicable Sepsis Protocol: For patient's 13 years and over: Temp is 96.8 and below OR 101 and greater Pulse >90 BPM Resp >20/minute Acutely Altered Mental Status Are patient's symptoms suggestive of a new infection, such as: -Pneumonia -Skin, Soft Tissue -Endocarditis -UTI -Bone, Joint Infection -Implantable Device -Acute Abdominal Infection -Wound Infection -Meningitis -Blood Stream Catheter Infection -Unknown System Inflammatory Response Syndrome: Not Applicable Psychological Complaint Exam - Psychiatric Complaint/Exam Patient Complains Of: Present: Depression. Absent: Suicidal thoughts, Suicidal gestures Onset/Duration: 2 DAYS Symptoms Are: Still present Timing: Constant Episodes Lasting: Hours Initial Severity: Moderate Current Severity: Moderate Character: Present: Anxious Aggravating: Reports: None Associated Signs And Symptoms: Denies: Hostile, Confused, Hallucinating, Paranoid behavior, Sleep disturbance, Appetite change Related History: Denies: Suicidal thoughts, Suicidal plan, Suicidal gestures, Homicidal thoughts, Homicidal plan, Homicidal gestures, Prior attempts Completed Suicide Risk Factors: None Patient Accompanied By: Other Patient In Custody Of Police: No Social Withdrawal Present: No Social Isolation Present: No Prior Suicide Attempt: No Injury From Prior Suicide Attempt: No Related Surgical History: Reports: None Patient Uncooperative For Exam: Yes Mood: Present: Agitated Appearance: Present: Clean Thought Process: Present: Illogical Insight: Present: Limited Memory: Intact Judgement: Impaired Danger To Others: No Differential Diagnoses: Anxiety Review of Systems - Review Of Systems Constitutional: Reports: No symptoms Eyes: Reports: No symptoms Ears, Nose, Mouth, Throat: Reports: No symptoms Respiratory: Reports: No symptoms Cardiac: Reports: No symptoms GI: Reports: No symptoms : Reports: No symptoms Musculoskeletal: Reports: No symptoms Skin: Reports: No symptoms Neurological: Reports: Emotional problems Endocrine: Reports: No symptoms Hematologic/Lymphatic: Reports: No symptoms All Other Systems: Reviewed and Negative Past Medical History - Past Medical History Previously Healthy: Yes Endocrine: Reports: Unknown Cardiovascular: Reports: Unknown Respiratory: Reports: Unknown Hematological: Reports: Unknown Gastrointestinal: Reports: GERD Genitourinary: Reports: Unknown Neuro/Psych: Reports: Depression, Bipolar Disorder Musculoskeletal: Reports: Unknown Cancer: Reports: Unknown Last Menstrual Period: july 2017 - Surgical History General Surgical History: Reports: Other (Cyst removed from right lower back ) - Family History Family History: Reports: Unknown - Social History Smoking Status: Current every day smoker, Heavy tobacco smoker Hx Substance Use: No Alcohol Screening: None Physical Exam - Physical Exam Appearance: Well-appearing, No pain distress, Well-nourished Eyes: RADHA, EOMI, Conjunctiva clear ENT: Ears normal, Nose normal, Oropharynx normal Respiratory: Airway patent, Breath sounds clear, Breath sounds equal, Respirations nonlabored Cardiovascular: RRR, Pulses normal, No rub, No murmur GI/: Soft, Nontender, No masses, Bowel sounds normal, No Organomegaly Musculoskeletal: Normal strength, ROM intact, No edema, No calf tenderness Skin: Warm, Dry, Normal color Neurological: Sensation intact, Motor intact, Reflexes intact, Cranial nerves intact, Alert, Oriented Psychiatric: Affect appropriate, Mood appropriate Critical Care Note - Critical Care Note Total Time (mins): 0 Course - Course Vital Signs: Temp Pulse Resp BP Pulse Ox 08/13/17 13:57 96.4 F L 95 H 20 135/84 96 Departure - Departure Time of Disposition: 13:16 Disposition: HOME SELF-CARE Discharge Problem: Normal exam Instructions: Anxiety (ED), Anxiolysis in Adults (ED) Condition: Good Pt referred to PMD for follow-up: Yes IPMP verified?: No Allergies/Adverse Reactions: Allergies Penicillins Adverse Reaction (Verified 08/13/17 14:07) Home Medications: Ambulatory Orders Benztropine Mesylate [Cogentin] 1 mg PO DAILY 04/16/17 Diphenhydramine HCl [Benadryl] 25 mg PO BEDTIME 04/16/17 Divalproex Sodium [Divalproex Sodium ER] 250 mg PO BEDTIME 04/16/17 [place] Carbonate [[place] Carbonate ER] 450 mg PO BID 04/16/17 Pantoprazole Sodium [Protonix] 40 mg PO DAILY 04/16/17 Primidone [Mysoline] 50 mg PO DAILY 04/16/17 Propranolol HCl [Inderal] 20 mg PO BID 04/16/17 Acetaminophen [Tylenol Arthritis] 650 mg PO TID PRN 04/21/17 Benzonatate [Tessalon Perles] 200 mg PO TID PRN 04/21/17 Lurasidone HCl [Latuda] 20 mg PO BID 05/01/17 Divalproex Sodium [Depakote ER] 1,000 mg PO BEDTIME 07/19/17 Hydrocodone Bit/Acetaminophen [[place] 5-325] 5 - 325 mg PO Q6H PRN 07/19/17 Ibuprofen [Motrin] 400 mg PO Q12H PRN 07/19/17 Disposition Discussed With: Patient
== END 2017-08-13 15:35 | disposition home or self-care (01) ==
LOC: ED 13:57
DX: Z04.6 Encounter for general psychiatric examination, requested by authority (principal); F32.9 Major depressive disorder, single episode, unspecified; F41.9 Anxiety disorder, unspecified; F17.210 Nicotine dependence, cigarettes, uncomplicated
CPT/HCPCS: 99285

== ENCOUNTER 2017-08-13 15:33 | Outpatient (CLI) ==
[2017-08-13 14:06] VITALS: BMI 53.9
== END 2017-08-13 15:34 | disposition short-term general hospital (02) ==
LOC: AMBL 15:33
PROVIDERS: ATTEND Internal Medicine
DX: R45.851 Suicidal ideations (principal)

== ENCOUNTER 2017-08-27 11:12 | Emergency (ER) ==
[2017-08-27 11:34] VITALS: BP 130/82; TEMP 97.2; BMI 48.6
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
--- NOTE | 2017-08-27 13:14 | DI ---
Exam: Four x-rays of the right hand Comparison: None available. Reason for exam: Blunt trauma. FINDINGS: Image interpretation is limited by positioning. No obvious displaced fracture or malalign ment is seen in the right hand. Osseous densities seen adjacent to the fifth metacarpal on the obliq ue view. Impression: 1. Osseous density adjacent to the fifth metacarpal on the oblique view may represent a small avulsi on fracture or degenerative disease. Recommend correlation with the site of patient's pain. 2. No displaced fractures are seen in the fingers although evaluation is significantly limited by po sitioning. 3. The wrist appears grossly unremarkable. Report faxed to [id number] hours on 08/27/2017
== END 2017-08-27 14:30 ==
LOC: ED 11:12
DX: S60.041A Contusion of right ring finger without damage to nail, initial encounter (principal); S60.221A Contusion of right hand, initial encounter; W22.8XXA Striking against or struck by other objects, initial encounter; F17.210 Nicotine dependence, cigarettes, uncomplicated
CPT/HCPCS: 99283